=== PATIENT | female | born 1985 | race Caucasian/White ===

== ENCOUNTER 2016-08-24 11:44 | Emergency (ER) | payer OTHER ==
[~2016-08-24] VITALS: Ht 152.4 cm; Wt 56.8 kg
[~2016-08-24 11:44] MED LIST: BLEPH-105 ML RIGHT EYE; NORCO 5/3251 TABLET PO; PULMICORT FLE180 MCG IH; TORADOL10 MG PO; TRAMADOL HCL50 MG PO; ZANTAC300 MG PO; ZOLOFT100 M1 PO
[2016-08-24] MEDS ORDERED: VENTOLIN HFA18 GM IH (12:43)
[2016-08-24] MEDS ORDERED: LIDODERM 5% P1 PATCH TD (14:58)
[2016-08-24] MEDS ORDERED: BACLOFEN10 MG PO (14:58)
[2016-08-24 15:13] VITALS: BP 127/93
== END 2016-08-24 15:13 | disposition home or self-care (01) ==
LOC: EME 11:44
DX: M79.652 Pain in left thigh (principal); M62.838 Other muscle spasm; M79.7 Fibromyalgia; Z88.0 Allergy status to penicillin
CPT/HCPCS: 93971; 99281; 99284